=== PATIENT | male | born 1975 | race Two or more races ===

== ENCOUNTER 2023-06-06 07:31 | Outpatient (CLI) | payer OTHER | END 2023-06-06 07:37 | disposition home or self-care (01) | LOC: TOM 07:31 | PROVIDERS: ATTEND Surgery | DX: K57.30 Diverticulosis of large intestine without perforation or abscess without bleeding (principal); K42.9 Umbilical hernia without obstruction or gangrene; Z86.010 Personal history of colon polyps; K75.81 Nonalcoholic steatohepatitis (NASH) ==

== ENCOUNTER 2023-12-17 07:25 | Outpatient (CLI) | payer OTHER | END 2023-12-17 07:39 | disposition home or self-care (01) | LOC: TOM 07:25 | PROVIDERS: ATTEND Surgery | DX: K57.20 Diverticulitis of large intestine with perforation and abscess without bleeding (principal); K57.30 Diverticulosis of large intestine without perforation or abscess without bleeding ==

== ENCOUNTER 2023-12-17 08:36 | Outpatient (CLI) | payer OTHER ==
[2023-12-17 10:09] LABS: CREATININE SERUM 1.21 mg/dL (0.70-1.30)
== END 2023-12-17 08:45 | disposition home or self-care (01) ==
LOC: LAB 08:36
PROVIDERS: ATTEND Radiology Diagnostic Radiology
DX: K57.20 Diverticulitis of large intestine with perforation and abscess without bleeding (principal)

== ENCOUNTER → 2024-11-22 | Outpatient (CLI) | payer OTHER | END | disposition home or self-care (01) | LOC: TOM 07:09 | DX: R10.84 Generalized abdominal pain (principal); R10.2 Pelvic and perineal pain ==